=== PATIENT | male | born 1970 | race Caucasian/White ===

== ENCOUNTER → 2016-07-24 | Outpatient (CLI) | payer MEDICARE, OTHER ==
[2016-07-24 15:29] LABS: HEMOGLOBIN 17.3 gm/dl (14.0-17.5); RED BLOOD COUNT 6.17 M/UL (4.20-5.50); WHITE BLOOD COUNT 12.5 K/UL (4.5-11.0)
[2016-07-24 15:51] LABS: BUN/CREATININE RATIO 28 (0-10)
== END ==
LOC: LAB 14:57
PROVIDERS: Podiatrist Foot & Ankle Surgery
DX: E11.9 Type 2 diabetes mellitus without complications (principal)
CPT/HCPCS: 36415; 80048; 83036; 85027

== ENCOUNTER → 2016-09-19 | Outpatient (CLI) | payer MEDICARE, OTHER ==
[2016-09-19 09:44] LABS: HEMOGLOBIN 14.5 gm/dl (14.0-17.5); RED BLOOD COUNT 5.17 M/UL (4.20-5.50); WHITE BLOOD COUNT 10.4 K/UL (4.5-11.0)
[2016-09-19 09:55] LABS: BUN/CREATININE RATIO 14 (0-10)
== END ==
LOC: LAB 08:42
PROVIDERS: Family Medicine
DX: E78.2 Mixed hyperlipidemia (principal)
CPT/HCPCS: 36415; 80053; 80061; 85025

== ENCOUNTER 2016-10-03 12:50 | Emergency (ER) | payer MEDICARE, OTHER ==
[2016-10-03 13:48] LABS: HEMOGLOBIN 14.2 gm/dl (14.0-17.5); WHITE BLOOD COUNT 8.8 K/UL (4.5-11.0)
[2016-10-03 14:09] LABS: BUN/CREATININE RATIO 11 (0-10)
== END 2016-10-03 15:38 | disposition home or self-care (01) ==
LOC: ER1 12:50
PROVIDERS: Emergency Medicine
DX: R51 Headache (principal); E11.9 Type 2 diabetes mellitus without complications
CPT/HCPCS: 36415; 70450; 71020; 80053; 81001; 82550; 82553; 82962; 83874; 83880; 84484; 85025; 85610; 85730; 87086; 93005; 99284

== ENCOUNTER → 2020-07-06 | Outpatient (CLI) | payer MEDICARE, OTHER ==
[~2020-07-06] MED LIST: ASPIRIN CHEWABL81 MG PO; COZAAR25 MG PO; ELAVIL 10 MG TA10 MG PO; FLONASE 0.05% N16 GM; LYRICA100 MG PO; NEXIUM PO; NEXIUM10 MG PO; NOVOLOG SQ; PRAVACHOL40 MG PO; TRESIBA SQ; VALIUM 5 MG TAB5 MG PO; VENTOLIN HFA 66.7 GM INH; VIIBRYD20 MG PO; ZANTAC150 MG PO
== END ==
LOC: KOH-I 15:39
DX: M25.572 Pain in left ankle and joints of left foot (principal); M25.571 Pain in right ankle and joints of right foot; M19.072 Primary osteoarthritis, left ankle and foot
CPT/HCPCS: 73610; 73630

== ENCOUNTER → 2020-07-20 | Outpatient (CLI) | payer MEDICARE, OTHER | LOC: EXRD 07-19 16:00 | DX: I82.402 Acute embolism and thrombosis of unspecified deep veins of left lower extremity (principal); M79.89 Other specified soft tissue disorders | CPT/HCPCS: 93926; 93971 ==

== ENCOUNTER → 2021-05-10 | Outpatient (CLI) | payer MEDICARE, OTHER | LOC: KOH-I 13:26 | DX: M79.671 Pain in right foot (principal) | CPT/HCPCS: 73630 ==

== ENCOUNTER → 2021-07-07 | Outpatient (CLI) | payer MEDICARE, OTHER ==
[2021-07-07 11:24] LABS: ADENOVIRUS F 40/41 Not Detected (Negative); ASTROVIRUS Not Detected (Negative); CAMPYLOBACTER Not Detected (Negative); CRYPTOSPORIDIUM Not Detected (Negative); E.COLI 0157 Not Detected (Negative); ENTAMOEBA HISTOLYTICA Not Detected (Negative); ENTEROAGGREGATIVE E.COLI (EAEC Not Detected (Negative); ENTEROPATHOGENIC E.COLI (EPEC) Not Detected (Negative); ENTEROTOXIGENIC E.COLI (ETEC) Not Detected (Negative); GIARDIA LAMBLIA Not Detected (Negative); NOROVIRUS GI/GII Not Detected (Negative); PLESIOMONAS SHIGELLOIDES Not Detected (Negative); ROTOVIRUS A Not Detected (Negative); SALMONELLA Not Detected (Negative); SAPOVIRUS Not Detected (Negative); SHIG/ENTEROINVAS.ECOLI (EIEC) Not Detected (Negative); SHIGA-LIK TOX.PRO.E.COLI (STEC Not Detected (Negative); VIBRIO Not Detected (Negative); VIBRIO CHOLERAE Not Detected (Negative); YERSINIA ENTEROCOLITICA Not Detected (Negative)
[2021-07-07 15:58] LABS: CLOSTRIDIUM DIFFICILE TOX A/B Not Detected (Negative)
== END ==
LOC: LBRF 11:06
PROVIDERS: Internal Medicine Gastroenterology
DX: R19.7 Diarrhea, unspecified (principal)
CPT/HCPCS: 87507

== ENCOUNTER 2021-07-22 18:30 | Observation (INO) | payer MEDICARE, OTHER ==
[~2021-07-22] VITALS: Ht 182.9 cm; Wt 100.7 kg
[2021-07-22 20:11] LABS: HEMOGLOBIN 13.4 gm/dl (14.0-17.5); RED BLOOD COUNT 4.88 M/UL (4.20-5.50); WHITE BLOOD COUNT 10.7 K/UL (4.5-11.0)
[2021-07-22 20:30] LABS: BUN/CREATININE RATIO 17 (0-10)
[2021-07-23 05:38] LABS: HEMOGLOBIN 12.3 gm/dl (14.0-17.5); RED BLOOD COUNT 4.5 M/UL (4.20-5.50)
[2021-07-23 05:41] LABS: WHITE BLOOD COUNT 7.9 K/UL (4.5-11.0)
[2021-07-23 06:01] LABS: BUN/CREATININE RATIO 17 (0-10)
--- NOTE | 2021-07-23 09:30 | NUR ---
AFTER I COMPLETED MORNING ASSESSMENT AND MEDICATION PATIENT ELOPED AROUND 8:40. PATIENT DID NOT TELL STAFF THAT HE WAS LEAVING. PATIENT LEFT WITHOUT AN EXPLANTION OF BENEFITS FROM STAFF. PROVIDER AWARE AND DIRECTOR MOBILE. MULTIPLE ATTEMPTS TO CALL PATIENT BACK WITH NO ANSWER. PATIENT LEFT WITH IV IN. PROVIDER AWARE.
== END 2021-07-23 08:30 | disposition left against medical advice (07) ==
LOC: ER1 18:30 → CDU 22:25 → MED SURG 4 22:25
PROVIDERS: Emergency Medicine; ADMIT Internal Medicine
DX: R07.89 Other chest pain (principal); I25.10 Atherosclerotic heart disease of native coronary artery without angina pectoris; E11.9 Type 2 diabetes mellitus without complications; I10 Essential (primary) hypertension; E78.5 Hyperlipidemia, unspecified; F17.210 Nicotine dependence, cigarettes, uncomplicated; Z79.4 Long term (current) use of insulin; Z79.84 Long term (current) use of oral hypoglycemic drugs; Z53.21 Procedure and treatment not carried out due to patient leaving prior to being seen by health care provider; Z95.5 Presence of coronary angioplasty implant and graft; Z88.6 Allergy status to analgesic agent; Z88.8 Allergy status to other drugs, medicaments and biological substances
CPT/HCPCS: 71045; 80048; 80053; 80061; 82550; 82553; 83036; 83735; 83880; 84439; 84443; 84484; 85025; 93005; 96374; 99285; C9113; G0378

== ENCOUNTER → 2021-10-12 | Outpatient (CLI) | payer MEDICARE, OTHER | LOC: KOH-I 08:39 | DX: F17.210 Nicotine dependence, cigarettes, uncomplicated (principal) | CPT/HCPCS: 71271 ==

== ENCOUNTER 2021-11-01 15:24 | Emergency (ER) | payer MEDICARE, OTHER ==
[2021-11-01 16:46] LABS: HEMOGLOBIN 13.2 gm/dl (14.0-17.5); RED BLOOD COUNT 5.06 M/UL (4.20-5.50); WHITE BLOOD COUNT 10.8 K/UL (4.5-11.0)
[2021-11-01 17:59] LABS: BUN/CREATININE RATIO 12 (0-10)
== END 2021-11-01 20:17 | disposition home or self-care (01) ==
LOC: ER1 15:24
PROVIDERS: Preventive Medicine Occupational Medicine
DX: R07.89 Other chest pain (principal); E11.649 Type 2 diabetes mellitus with hypoglycemia without coma; J44.9 Chronic obstructive pulmonary disease, unspecified; I25.10 Atherosclerotic heart disease of native coronary artery without angina pectoris; I10 Essential (primary) hypertension
CPT/HCPCS: 71045; 80053; 81001; 82550; 82553; 83690; 83880; 84484; 85025; 85652; 86140; 93005; 96374; 96375; 99285; C9113; J1610; J2405

== ENCOUNTER → 2021-11-17 | Outpatient (CLI) | payer MEDICARE, OTHER | LOC: EXRD 15:13 | DX: R05.9 Cough, unspecified (principal) | CPT/HCPCS: 71046 ==